=== PATIENT | male | born 1935 | race Caucasian/White ===

== ENCOUNTER → 2017-08-06 | Outpatient (CLI) | payer MEDICARE, OTHER ==
--- NOTE | 2017-08-06 11:05 | RADIOLOGY REPORT (SQ) ---
EXAM DESCRIPTION: MRI RT LOWER JOINT WITHOUT COMPLETED DATE/TIME: 08/06/2017 10:40 am REASON FOR STUDY: PAIN IN RIGHT FOOT (M79.671), PAIN IN RT ANKLE (M25.571) M79.671 PAIN IN RIGHT FO OT M25.571 PAIN IN RIGHT ANKLE AND JOINTS OF RIGHT FOOT COMPARISON: None. TECHNIQUE: Right ankle images acquired and stored on PACS. Multiplanar images include fat sensitive sequences as T1, fluid sensitive sequences as FST2/STIR, cartilage sensitive sequences as FSPD, and g radient echo sequences. LIMITATIONS: None. FINDINGS: BONE MARROW: See talar dome findings below. No occult fracture. EFFUSIONS: No large effusion identified. OSSEOUS ARTICULATIONS: Mild tarsal joint space narrowing with small subchondral cysts or erosions. N o bulky osteophytes. No subluxation or dislocation or overt coalition. TALAR DOME AND TIBIAL PLAFOND: Subchondral cysts are appreciated in the talar dome both medially and laterally. Tibial sided subchondral cysts along the tibiofibular articulation. Some adjacent casing soaker ior extension of soft tissue cystic changes here as well. Prominent trigonal process without suggest ion of edema. ACHILLES TENDON: Intact without partial or full-thickness tear. No adjacent bursal fluid or edema. TIBIALIS ANTERIOR TENDON: Intact without edema at the 1st MT attachment. TIBIALIS POSTERIOR TENDON: Mild thickening and tendinosis in the posterior tibialis tendon. Mild toshia rounding fluid in the tendon sheath. FLEXOR HALLUCIS LONGUS AND FLEXOR DIGITORUM TENDONS: Normal morphology and no tendon sheath fluid. No edema of the os trigonum. PERONEUS LONGUS AND BREVIS TENDON: Normal morphology and no tendon sheath fluid. No subluxation. ATFL, CFL, PTFL: Intact. No thickening or signal alteration. No isamar-ligamentous fluid. DELTOID LIGAMENT: Visualized components intact. TARSAL TUNNEL: No masses. No muscle atrophy. SINUS TARSI: Replacement of the normal sinus tarsi fat. Mild surrounding bone cysts or erosions also suggested. PLANTAR FASCIA: Mild calcaneal bone spur formation with subtle edema. Minimal thickening of the plan tar fascia proximally. ADJACENT SOFT TISSUES: No masses. OTHER: No other significant finding. IMPRESSION: 1. Arthropathic changes include subchondral cysts in the talar dome, mixed intraosseous and extraosseous ganglion along the tibiofibular articulation. 2. 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 3. Potential plantar fasciitis. 4. Posterior tibialis tenosynovitis. Please also see separately dictated right forefoot MRI from same date. TECHNICAL DOCUMENTATION: JOB ID: [id number] [employer]- All Rights Reserved Reading location - IP/workstation name: [email or web address]
--- NOTE | 2017-08-06 11:11 | RADIOLOGY REPORT (SQ) ---
EXAM DESCRIPTION: MRI RT LOWER EXTREMITY WITHOUT COMPLETED DATE/TIME: 08/06/2017 10:40 am REASON FOR STUDY: PAIN IN RIGHT FOOT (M79.671), PAIN IN RT ANKLE (M25.571) M79.671 PAIN IN RIGHT FO OT M25.571 PAIN IN RIGHT ANKLE AND JOINTS OF RIGHT FOOT COMPARISON: None. TECHNIQUE: T1-weighted, T2-weighted, and gradient echo noncontrast multiplanar imaging of the right forefoot. LIMITATIONS: None. FINDINGS: MARROW SIGNAL: Prominent great toe MP arthropathy with joint space loss and prominent eros ions or cysts, particularly in the metatarsal head. Less pronounced arthropathy in the 2nd toe MP shankar int. No subluxation or dislocation at the MP or IP joints. JOINT EFFUSION: No significant effusions. PLANTAR FASCIA: Normal as visualized. TARSOMETATARSAL AND TOE ARTICULATIONS: See above. INTERMETATARSAL SPACES AND PLANTAR PLATES: Intact. No soft tissue mass to suggest a neuroma. SOFT TISSUES: No masses. No fibrosis. OTHER: No other significant finding. IMPRESSION: 1. Significant arthropathic changes in the great toe and 2nd toe MP joints as above. No fracture. No subluxation or dislocation evident. Please also refer to separately dictated right ankle MRI from same date. TECHNICAL DOCUMENTATION: JOB ID: [id number] [employer]- All Rights Reserved Reading location - IP/workstation name: [email or web address]
== END ==
LOC: RAD 09:45
PROVIDERS: ATTEND Orthopaedic Surgery Sports Medicine
DX: M79.671 Pain in right foot (principal); M25.571 Pain in right ankle and joints of right foot